=== PATIENT | female | born 1975 | race Caucasian/White ===

== ENCOUNTER 2018-04-29 10:26 | Emergency (ER) | payer BC, OTHER ==
[~2018-04-29] VITALS: Ht 162.6 cm; Wt 60.8 kg
[2018-04-29 10:43] VITALS: BP_SYST 119
[2018-04-29 12:16] LABS: BILIRUBIN,URINE NEGATIVE (NEGATIVE); BLOOD, URINE 3+ (NEGATIVE); CLARITY/URINE CLEAR (CLEAR); COLOR,URINE YELLOW (YELLOW); GLUCOSE,URINE NEGATIVE (NEGATIVE); KETONES,URINE NEGATIVE (NEGATIVE); LEUKOCYTE ESTERASE ,URINE NEGATIVE (NEGATIVE); NITRITE, URINE NEGATIVE (NEGATIVE); PH,URINE 5.5 (5.0-8.0); PROTEIN URINE NEGATIVE (NEGATIVE); UROBILINOGEN,URINE 0.2 (0.2-1.0)
[2018-04-29] MEDS ORDERED: KETOROLAC TROMETHAMINE 30 MG VIAL IVP ONE (12:30)
[2018-04-29 12:50] LABS: BACTERIA,URINE RARE /HPF (None Seen); WBC,URINE 0-3 /HPF (0-3)
[2018-04-29 12:54] LABS: RBC,URINE 20-50 /HPF (0-3)
[2018-04-29 13:37] VITALS: BP_SYST 98
== END 2018-04-29 13:35 | disposition home or self-care (01) ==
LOC: SED 10:26
DX: R10.13 Epigastric pain (principal); R03.0 Elevated blood-pressure reading, without diagnosis of hypertension; M19.90 Unspecified osteoarthritis, unspecified site; Z88.2 Allergy status to sulfonamides; Z98.84 Bariatric surgery status; Z98.51 Tubal ligation status
CPT/HCPCS: 76700; 81000; 96374; 99285; J1885

== ENCOUNTER 2020-08-13 08:23 | Emergency (ER) | payer BC, OTHER ==
[~2020-08-13] VITALS: Ht 160 cm; Wt 64.9 kg
[2020-08-13 08:30] VITALS: BP_SYST 91
--- NOTE | 2020-08-13 08:34 | NUR ---
Placed in room 7 . Placed on cardiac cath rn, blood pressure machine and pulse oximeter. To gown for exam. Side rails up.
--- NOTE | 2020-08-13 08:35 | NUR ---
Pt walked in to ER with c/o right flank pain, burning and urgency x2 days. Reports being seen in urgent care and was precribed Cipro. States she hasn't had any relief of symptoms so she came to ER. V/S stable, pt is afebrile. Currently sitting at bedside, will continue to monitor.
--- NOTE | 2020-08-13 08:40 | NUR ---
ER Dr. Kidd at bedside examining patient.
[2020-08-13] MEDS ORDERED: KETOROLAC TROMETHAMINE 60 MG/2 ML VIAL IM ONE (09:00)
[2020-08-13 09:15] VITALS: BP_SYST 91
--- NOTE | 2020-08-13 09:16 | NUR ---
Patient given written and verbal discharge instructions and verbalizes understanding. ER MD discussed with patient the results and treatment provided. Patient in stable condition. ID arm band removed. Rx of Macrobid given. Patient educated on pain management and to follow up with PMD. Pain Scale 3. Opportunity for questions provided and answered. Medication side effect fact sheet provided.
[2020-08-13 09:38] LABS: BILIRUBIN,URINE 1+ (NEGATIVE); BLOOD, URINE 3+ (NEGATIVE); CLARITY/URINE CLOUDY (CLEAR); COLOR,URINE ORANGE (YELLOW); GLUCOSE,URINE NEGATIVE (NEGATIVE); KETONES,URINE TRACE (NEGATIVE); LEUKOCYTE ESTERASE ,URINE 1+ (NEGATIVE); NITRITE, URINE POSITIVE (NEGATIVE); PROTEIN URINE 2+ (NEGATIVE)
[2020-08-13 09:44] LABS: BACTERIA,URINE MANY /HPF (None Seen); RBC,URINE 20-50 /HPF (0-3)
[2020-08-13 09:45] LABS: WBC,URINE >100 /HPF (0-3)
[2020-08-17 19:06] LABS: CHLAMYDIA TRACHOMATIS NAA Negative (Negative); NEISSERIA GONORRHOEAE NAA Negative (Negative)
== END 2020-08-13 09:16 | disposition home or self-care (01) ==
LOC: SED 08:23
DX: N39.0 Urinary tract infection, site not specified (principal); Z88.2 Allergy status to sulfonamides
CPT/HCPCS: 81000; 87086; 87491; 87591; 96372; 99283; J1885

== ENCOUNTER 2020-08-15 13:59 | Emergency (ER) | payer OTHER ==
[~2020-08-15] VITALS: Ht 160 cm; Wt 64.9 kg
[2020-08-15 14:13] VITALS: BP_SYST 121
--- NOTE | 2020-08-15 14:21 | NUR ---
Patient to ER bed 7 to gown for evaluation. Side rails up. Report given to Enoch AWAN.
--- NOTE | 2020-08-15 14:33 | NUR ---
[facility] TO ASSUME CARE. PT HERE FOR DYSURIA, C/O RECENT DX OF UTI GIVEN ABX WITH NO RELIEF
--- NOTE | 2020-08-15 14:46 | NUR ---
DR LUCERO IN TO ASSESS
[2020-08-15] MEDS ORDERED: PHENAZOPYRIDINE HCL 100 MG TABLET PO ONE (15:00)
[2020-08-15] MEDS ORDERED: ONDANSETRON 4 MG ODT TAB PO ONE (15:00)
[2020-08-15] MEDS ORDERED: cefTRIAXone 1 GM VIAL IM ONE (15:00)
--- NOTE | 2020-08-15 15:16 | NUR ---
Pt was seen on 08/13/20. Received urine micro biology results (E. Coli, MDRO). Results given to Dr. Han
[2020-08-15 15:18] VITALS: BP_SYST 121
--- NOTE | 2020-08-15 15:19 | NUR ---
Patient given written and verbal discharge instructions and verbalizes understanding. ER MD discussed with patient the results and treatment provided. Patient in stable condition. ID arm band removed. Rx of Zofran and Minocycline given. Patient educated on pain management and to follow up with PMD. Pain Scale 3/10. Opportunity for questions provided and answered. Medication side effect fact sheet provided.
== END 2020-08-15 15:19 | disposition home or self-care (01) ==
LOC: SED 13:59
DX: N39.0 Urinary tract infection, site not specified (principal); Z88.2 Allergy status to sulfonamides
CPT/HCPCS: 81025; 96372; 99283; J0696; Q0162

== ENCOUNTER 2023-03-11 09:15 | Emergency (ER) | payer BC, OTHER ==
[~2023-03-11] VITALS: Ht 162.6 cm; Wt 65.8 kg
[2023-03-11 09:15] VITALS: BP_SYST 123
--- NOTE | 2023-03-11 09:15 | NUR ---
BROUGHT BACK TO BED #6 AND TRIAGED. REPORT GIVEN TO JOY
--- NOTE | 2023-03-11 09:30 | NUR ---
PT BIB SELF FROM HOME, AMBULATED TO BED 6. PT A&Ox4, ABLE TO MAKE NEEDS KNOWN. PT C/O LEFT LOWER BACK PAIN x4 DAYS. PT RATES PAIN 9/10. PT STATES PAIN RADIATES DOWN LEFT HIP. PT STATES SHE TOOK 50MG TRAMADOL AT 0200. PT DENIES N/V/D, FEVER AND CHILLS. PT DENIES SOB AND CHEST PAIN. SAFETY PRECAUTIONS IN PLACE.
[2023-03-11 09:59] LABS: BILIRUBIN,URINE NEGATIVE (NEGATIVE); BLOOD, URINE 2+ (NEGATIVE); CLARITY/URINE CLEAR (CLEAR); COLOR,URINE YELLOW (YELLOW); GLUCOSE,URINE NEGATIVE (NEGATIVE); KETONES,URINE NEGATIVE (NEGATIVE); LEUKOCYTE ESTERASE ,URINE NEGATIVE (NEGATIVE); NITRITE, URINE NEGATIVE (NEGATIVE); PROTEIN URINE NEGATIVE (NEGATIVE); UROBILINOGEN,URINE 0.2 (0.2-1.0)
[2023-03-11 10:10] LABS: BACTERIA,URINE RARE /HPF (None Seen); MUCUS,URINE 1+ /LPF (None Seen); WBC,URINE 0-3 /HPF (0-3)
--- NOTE | 2023-03-11 10:12 | NUR ---
ER Dr. HOGUE at bedside examining patient.
[2023-03-11 11:07] LABS: BASOPHILS # (AUTO) 0.1 K/uL (0.0-0.2); BASOPHILS % (AUTO) 1.2 % (0.0-2.0); EOSINOPHILS # (AUTO) 0.2 K/uL (0.0-0.4); EOSINOPHILS % (AUTO) 2.8 % (0.0-4.0); HEMATOCRIT 33.7 % (36-48); HEMOGLOBIN 10.7 g/dL (12.0-16.0); LYMPHOCYTES # (AUTO) 2.7 K/uL (1.0-5.5); LYMPHOCYTES % (AUTO) 41.9 % (20.5-51.5); MEAN CORPUSCULAR HEMOGLOBIN 24 pg (27-31); MEAN CORPUSCULAR HGB CONC 32 % (32-36); MEAN CORPUSCULAR VOLUME 75 fL (79.0-98.0); MONOCYTES # (AUTO) 0.5 K/uL (0.0-1.0); MONOCYTES % (AUTO) 7.8 % (1.7-9.3); NEUTROPHILS % (AUTO) 46.3 % (40.0-70.0); PLATELET COUNT (AUTO) 270 K/uL (130-430); WHITE BLOOD COUNT (AUTO) 6.4 K/uL (4.8-10.8)
[2023-03-11 11:17] LABS: ANION GAP 7 (5-15); CALCIUM 8.8 mg/dL (8.4-11.0); CHLORIDE 105 mmol/L (98-107); CREATININE 0.96 mg/dL (0.55-1.30); GFR AFRICAN AMERICAN 80 mL/min (>90); GLUCOSE 92 mg/dL (70-99); UREA NITROGEN, BLOOD 14 mg/dL (8-21)
[2023-03-11 11:22] LABS: ALANINE AMINOTRANSFERASE 19 U/L (12-78); ALBUMIN 3.4 g/dL (3.4-4.8); ASPARTATE AMINOTRANSFERASE 18 U/L (10-37); TOTAL BILIRUBIN 0.4 mg/dL (0.0-1.0)
[2023-03-11 11:23] LABS: C-REACTIVE PROTEIN QUANT < 0.2 mg/dL (0-0.5)
[2023-03-11] MEDS ORDERED: TRAM50TA2 PO (11:31)
--- NOTE | 2023-03-11 12:01 | NUR ---
Patient given written and verbal discharge instructions and verbalizes understanding. ER MD discussed with patient the results and treatment provided. Patient in stable condition. ID arm band removed. IV catheter removed intact and dressing applied, no active bleeding. Rx of given. Patient educated on pain management and to follow up with PMD. Pain Scale . Opportunity for questions provided and answered. Medication side effect fact sheet provided.
[2023-03-11 12:19] VITALS: BP_SYST 132
--- NOTE | 2023-03-11 12:19 | NUR ---
Patient given written and verbal discharge instructions and verbalizes understanding. ER MD discussed with patient the results and treatment provided. Patient in stable condition. ID arm band removed. IV catheter removed intact and dressing applied, no active bleeding. Rx of ULTRAN 50 MG given. Patient educated on pain management and to follow up with PMD. Pain Scale . Opportunity for questions provided and answered. Medication side effect fact sheet provided.
== END 2023-03-11 12:19 | disposition home or self-care (01) ==
LOC: SED 09:15
DX: M54.30 Sciatica, unspecified side (principal); R59.1 Generalized enlarged lymph nodes; M79.662 Pain in left lower leg; Z88.2 Allergy status to sulfonamides; Z79.899 Other long term (current) drug therapy
CPT/HCPCS: 36415; 76376; 80053; 81000; 83605; 84703; 85025; 86140; 99284